=== PATIENT | female | born 1980 | race Caucasian/White ===

== ENCOUNTER 2016-05-01 10:20 | Emergency (ER) | payer OTHER | END 2016-05-01 12:40 | disposition home or self-care (01) | LOC: ER1 10:20 | DX: T23.152A Burn of first degree of left palm, initial encounter (principal); T23.151A Burn of first degree of right palm, initial encounter; I10 Essential (primary) hypertension; Z23 Encounter for immunization; X19.XXXA Contact with other heat and hot substances, initial encounter; Y93.89 Activity, other specified; Y92.009 Unspecified place in unspecified non-institutional (private) residence as the place of occurrence of the external cause; Z79.899 Other long term (current) drug therapy | CPT/HCPCS: 90471; 90714; 99283 ==

== ENCOUNTER → 2016-06-21 | Outpatient (CLI) | payer OTHER | LOC: RAD 16:35 | DX: M25.561 Pain in right knee (principal) | CPT/HCPCS: 73562 ==

== ENCOUNTER → 2020-03-04 | Outpatient (CLI) | payer OTHER ==
[~2020-03-04] MED LIST: LEXAPRO10 MG PO; MELATONIN5 M2 PO; NORCO 5-325 TA1 EACH PO; PROTONIX40 MG PO; SINGULAIR10 MG PO; TORADOL 10 MG T10 MG PO; VITAMIN D250000 UNIT PO; VOLTAREN EC 5050 MG PO; WELLBUTRIN XL300 M1 PO; ZANTAC150 MG PO; ZOFRAN ODT 4 MG4 MG PO; ZYRTEC10 M3 PO
[2020-03-04 11:18] LABS: HEMOGLOBIN 14.5 gm/dl (12.3-15.3); RED BLOOD COUNT 4.56 M/UL (4.00-5.10); WHITE BLOOD COUNT 7.4 K/UL (4.5-11.0)
[2020-03-05 09:14] LABS: THYROXINE (T4) 8.8 ug/dL (4.5-12.0)
== END ==
LOC: LAB 10:39
PROVIDERS: Nurse Practitioner Family
DX: R53.83 Other fatigue (principal); F41.9 Anxiety disorder, unspecified; F32.9 Major depressive disorder, single episode, unspecified; E78.5 Hyperlipidemia, unspecified; M79.10 Myalgia, unspecified site; R03.0 Elevated blood-pressure reading, without diagnosis of hypertension
CPT/HCPCS: 36415; 80053; 80061; 84436; 84443; 84480; 85025

== ENCOUNTER → 2020-04-02 | Outpatient (CLI) | payer OTHER ==
[2020-04-02 09:59] LABS: HEMOGLOBIN 14.7 gm/dl (12.3-15.3); RED BLOOD COUNT 4.56 M/UL (4.00-5.10); WHITE BLOOD COUNT 6.8 K/UL (4.5-11.0)
== END ==
LOC: LAB 09:24
PROVIDERS: Nurse Practitioner Family
DX: E78.5 Hyperlipidemia, unspecified (principal); R76.0 Raised antibody titer
CPT/HCPCS: 36415; 80053; 80061; 84439; 84443; 85025; 85652; 86140

== ENCOUNTER → 2020-06-30 | Outpatient (CLI) | payer OTHER ==
[2020-06-30 10:36] LABS: HEMOGLOBIN 13.6 gm/dl (12.3-15.3); RED BLOOD COUNT 4.25 M/UL (4.00-5.10); WHITE BLOOD COUNT 6.6 K/UL (4.5-11.0)
[2020-07-01 08:14] LABS: THYROXINE (T4) 7.9 ug/dL (4.5-12.0)
== END ==
LOC: LAB 09:44
PROVIDERS: Nurse Practitioner Family
DX: M54.5 Low back pain (principal); E66.01 Morbid (severe) obesity due to excess calories; Z68.43 Body mass index [BMI] 50.0-59.9, adult; G47.00 Insomnia, unspecified; Z98.84 Bariatric surgery status; E78.5 Hyperlipidemia, unspecified; F41.1 Generalized anxiety disorder; F33.0 Major depressive disorder, recurrent, mild; K21.9 Gastro-esophageal reflux disease without esophagitis; R53.82 Chronic fatigue, unspecified; M25.512 Pain in left shoulder; M13.0 Polyarthritis, unspecified; M25.50 Pain in unspecified joint; M25.511 Pain in right shoulder; M25.561 Pain in right knee; M25.562 Pain in left knee
CPT/HCPCS: 36415; 72110; 73030; 73562; 80053; 80061; 81001; 82607; 83036; 84436; 84443; 84480; 85025

== ENCOUNTER → 2020-11-18 | Outpatient (CLI) | payer OTHER | LOC: RAD 09:53 | DX: M79.641 Pain in right hand (principal) | CPT/HCPCS: 73130 ==

== ENCOUNTER → 2021-03-10 | Outpatient (CLI) | payer OTHER ==
[2021-03-10 11:50] LABS: RED BLOOD COUNT 4.34 M/UL (4.00-5.10); WHITE BLOOD COUNT 8.6 K/UL (4.5-11.0)
[2021-03-11 07:12] LABS: A/G RATIO 1.9 (1.2-2.2); ALKALINE PHOSPHATASE, S 112 IU/L (44-121); ALT (SGPT) 68 IU/L (0-32); AST (SGOT) 40 IU/L (0-40); BILIRUBIN, TOTAL 0.4 mg/dL (0.0-1.2); BUN 13 mg/dL (6-24); BUN/CREATININE RATIO 15 (9-23); CALCIUM, SERUM 9.3 mg/dL (8.7-10.2); CARBON DIOXIDE, TOTAL 23 mmol/L (20-29); CHLORIDE, SERUM 103 mmol/L (96-106); CHOLESTEROL, TOTAL 233 mg/dL (100-199); CREATININE, SERUM 0.89 mg/dL (0.57-1.00); EGFR IF AFRICN AM 92 (>59); EGFR IF NONAFRICN AM 80 (>59); GLOBULIN, TOTAL 2.3 g/dL (1.5-4.5); GLUCOSE, SERUM 93 mg/dL (65-99); HDL CHOLESTEROL 63 mg/dL (>39); LDL CHOLESTEROL CALC 143 mg/dL (0-99); LDL/HDL RATIO 2.3 ratio (0.0-3.2); POTASSIUM, SERUM 4.8 mmol/L (3.5-5.2); PROTEIN, TOTAL, SERUM 6.6 g/dL (6.0-8.5); SODIUM, SERUM 140 mmol/L (134-144); T. CHOL/HDL RATIO 3.7 ratio (0.0-4.4); TRIGLYCERIDES 155 mg/dL (0-149); VITAMIN D, 25-HYDROXY 37.6 ng/mL (30.0-100.0)
[2021-03-11 08:14] LABS: THYROXINE (T4) 8.3 ug/dL (4.5-12.0); TRIIODOTHYRONINE (T3) 136 ng/dL (71-180)
[2021-03-11 09:14] LABS: ESTIM. AVG GLU (EAG) 97 mg/dL (.)
== END ==
LOC: LAB 11:10
PROVIDERS: Nurse Practitioner Family
DX: I10 Essential (primary) hypertension (principal); E78.5 Hyperlipidemia, unspecified; F33.0 Major depressive disorder, recurrent, mild; E66.01 Morbid (severe) obesity due to excess calories; R53.83 Other fatigue
CPT/HCPCS: 36415; 80053; 80061; 81001; 83036; 84436; 84443; 84480; 85025

== ENCOUNTER → 2021-04-13 | Outpatient (CLI) | payer OTHER ==
[2021-04-13 12:11] LABS: HEMOGLOBIN 13.9 gm/dl (12.3-15.3); RED BLOOD COUNT 4.55 M/UL (4.00-5.10); WHITE BLOOD COUNT 9.2 K/UL (4.5-11.0)
[2021-04-13 12:30] LABS: BUN/CREATININE RATIO 15 (0-10)
== END ==
LOC: LAB 11:30
PROVIDERS: Physician Assistant
DX: M25.522 Pain in left elbow (principal); M25.532 Pain in left wrist; M79.632 Pain in left forearm; I10 Essential (primary) hypertension; E78.5 Hyperlipidemia, unspecified; R53.83 Other fatigue; Z86.39 Personal history of other endocrine, nutritional and metabolic disease; M19.022 Primary osteoarthritis, left elbow
CPT/HCPCS: 36415; 73080; 73090; 73110; 80053; 80061; 83036; 84443; 84550; 85025

== ENCOUNTER → 2021-06-12 | Emergency (ER) | payer OTHER | END | disposition home or self-care (01) | LOC: ER1 17:17 | DX: S93.402A Sprain of unspecified ligament of left ankle, initial encounter (principal); I10 Essential (primary) hypertension; E78.5 Hyperlipidemia, unspecified; K21.9 Gastro-esophageal reflux disease without esophagitis; X50.9XXA Other and unspecified overexertion or strenuous movements or postures, initial encounter | CPT/HCPCS: 73610; 99283 ==

== ENCOUNTER → 2021-08-04 | Outpatient (CLI) | payer OTHER ==
[2021-08-04 12:12] LABS: HEMOGLOBIN 14.4 gm/dl (12.3-15.3); RED BLOOD COUNT 4.48 M/UL (4.00-5.10); WHITE BLOOD COUNT 7.9 K/UL (4.5-11.0)
[2021-08-04 12:40] LABS: BUN/CREATININE RATIO 21 (0-10)
[2021-08-05 07:12] LABS: ESTIM. AVG GLU (EAG) 103 mg/dL (.); HEMOGLOBIN A1C 5.2 % (4.8-5.6)
[2021-08-05 08:14] LABS: CHOLESTEROL, TOTAL 166 mg/dL (100-199); HDL CHOLESTEROL 52 mg/dL (>39); LDL CHOLESTEROL CALC 87 mg/dL (0-99); LDL/HDL RATIO 1.7 ratio (0.0-3.2); T. CHOL/HDL RATIO 3.2 ratio (0.0-4.4); THYROXINE (T4) 8.4 ug/dL (4.5-12.0); TRIGLYCERIDES 155 mg/dL (0-149); TRIIODOTHYRONINE (T3) 128 ng/dL (71-180); VITAMIN D, 25-HYDROXY 41.6 ng/mL (30.0-100.0)
== END ==
LOC: LAB 10:51
PROVIDERS: Nurse Practitioner Family
DX: I10 Essential (primary) hypertension (principal); E78.2 Mixed hyperlipidemia; K21.9 Gastro-esophageal reflux disease without esophagitis; Z51.81 Encounter for therapeutic drug level monitoring; R73.09 Other abnormal glucose; M25.50 Pain in unspecified joint
CPT/HCPCS: 36415; 80053; 80061; 82607; 83036; 84436; 84443; 84480; 85025